=== PATIENT | female | born 1930 | race Caucasian/White ===

== ENCOUNTER 2017-07-19 07:05 | Day surgery (SDC) | payer MEDICARE, OTHER ==
[~2017-07-19 07:05] MED LIST: EPINEPHrine 1:10,000 1 MG/10 ML Syringe ONE; Lactated Ringers 1,000 ML IV SCH; Sodium Chloride 0.9% 5 ML Syringe FLUSH PRN
[2017-07-19] MEDS ORDERED: Propofol 200 MG/20 ML SDV ONE (07:11)
[2017-07-19] MEDS ORDERED: Midazolam 1 MG/ML 2 ML SDV ONE (07:11)
[2017-07-19 07:54] LABS: CHLORIDE,CL 106 mmol/L (98-115); SODIUM,NA 141 mmol/L (136-145)
[2017-07-19] MEDS ORDERED: Sodium Chloride 0.9% 5 ML Syringe FLUSH PRN (08:00)
[2017-07-19] MEDS ORDERED: Lactated Ringers 1,000 ML IV SCH (08:00)
[2017-07-19] MEDS ORDERED: Midazolam 1 MG/ML 2 ML SDV IV ONE (08:15)
[2017-07-19] MEDS ORDERED: Propofol 200 MG/20 ML SDV IV ONE (08:15)
--- NOTE | 2017-07-19 09:07 | PCM.PRNOTE ---
- Free Text/Narrative Note: PROCEDURE PERFORMED: Colonoscopy PRE-PROCEDURE DIAGNOSIS/INDICATION FOR PROCEDURE: Change in bowel habits with increased constipation; Reviewed outpatient documentation from appointments with PCP Dr. Oumou Nolen and discussed with patient that they had a long conversation about ways to proceed and they agreed that colonoscopy to further evaluate was the next best step CONSENT: Informed consent was obtained prior to the procedure after discussion of the risks (including pain, bleeding, infection, perforation, adverse reaction to anesthesia, cardiovascular event), benefits and alternatives and expected outcomes were discussed with the patient. The patient expressed understanding and wished to proceed. Verbal consent given and consent form signed. PROCEDURAL PAUSE: Completed SEDATION: Per anesthesia staff DESCRIPTION OF PROCEDURE: Ms. Caban was brought back to the OR and placed in the left lateral decubitus position. After adequate sedation and anesthetic was administered, a rectal exam was performed revealing multiple internal and external hemorrhoids. A lubricated video colonoscope was inserted into the rectum and air insufflation was performed. The colonoscope was advanced through the rectum, sigmoid, descending, transverse, and ascending colon without difficulties. The cecum was reached and the ileocecal valve as well as the appendiceal orifice were identified and pictorially documented. After adequate visualization of the cecum, the scope was withdrawn, giving 360-degree views of the colonic mucosa and retroflexion was performed in the rectum with the following findings noted: Ileocecal valve: Normal Cecum: Normal Ascending colon: Normal Hepatic flexure: Normal Transverse colon: Normal Splenic flexure: Normal Descending flexure: Normal Sigmoid colon: Multiple diverticuli Rectum: Internal hemorrhoids noted on retroflexion The scope was straightened, air suction performed, and the scope withdrawn without complication. Preparation adequacy good. IMPRESSION: Colonoscopy performed revealing multiple diverticuli and internal and external hemorrhoids; no polyps or specimens. PLAN: Will have her initiate bowel regimen with docusate and metamucil with goal of 1- 2 soft bowel movements daily. Follow-up with PCP as planned.
[2017-07-19 10:56] VITALS: BP 124/76
== END 2017-07-19 10:40 | disposition home or self-care (01) ==
LOC: KA.SDS 07:05
PROVIDERS: ATTEND Family Medicine
DX: K57.30 Diverticulosis of large intestine without perforation or abscess without bleeding (principal); K64.8 Other hemorrhoids; Z88.8 Allergy status to other drugs, medicaments and biological substances; E78.2 Mixed hyperlipidemia; E03.9 Hypothyroidism, unspecified; I63.50 Cerebral infarction due to unspecified occlusion or stenosis of unspecified cerebral artery; N18.3 Chronic kidney disease, stage 3 (moderate); K21.9 Gastro-esophageal reflux disease without esophagitis; Z95.0 Presence of cardiac pacemaker; Z79.82 Long term (current) use of aspirin; Z79.899 Other long term (current) drug therapy
CPT/HCPCS: 36415; 45378; 80048; 85025; J2250; J2704; J7120; 00810